=== PATIENT | male | born 1935 | race Caucasian/White ===

== ENCOUNTER → 2017-02-26 | Outpatient (CLI) | payer OTHER, MEDICARE ==
[~2017-02-26] MED LIST: AMBIEN 10 MG TA10 MG PO; AMLODIPINE BESY10 MG PO; ASPIRIN325 PO; ATORVASTATIN CA40 MG PO; BAYER CHEWABLE81 MG PO; CARVEDILOL6.25 MG PO; CELEBREX 200 M200 MG PO; CELEXA40 MG PO; CO Q-10400 MG; COUMADIN 2.5MG2.5 M1 PO; COUMADIN 5 MG TA5 M1 PO; ESCITALOPRAM OX20 MG PO; EXFORGE; HYDROCODONE-AP1 EAC6 PO; IBUPROFEN 200200 M1; LUNESTA3 MG PO; MIRAPEX 0.250.25 M1 PO; MOBIC7.5 MG PO; NAPROSYN500 MG PO; NIASPAN ER 101000 M1 PO; OMEGA-31000 M1; SIMVASTATIN40 MG PO; STOOL SOFTENER; STOOL SOFTENER100 MG PO; TAMSULOSIN HCL0.4 M1 PO; TRAZODONE 150150 M1 PO; VITAMIN D-32000 UNIT PO; XANAX 0.5 MG0.5 MG
== END ==
LOC: MRI 13:35
DX: I67.82 Cerebral ischemia (principal); J32.9 Chronic sinusitis, unspecified; H74.8X3 Other specified disorders of middle ear and mastoid, bilateral

== ENCOUNTER 2019-08-06 16:36 | Emergency (ER) | payer OTHER, MEDICARE ==
[~2019-08-06] VITALS: Ht 188 cm; Wt 90.7 kg
[2019-08-06 18:58] LABS: ABSOLUTE NEUTROPHILS 3.5 thou/uL (1.4-8.2); BASOPHILS 0.5 % (0.0-2.0); EOSINOPHILS 1.8 % (0.0-3.0); HEMATOCRIT 39.6 % (42.0-52.0); HEMOGLOBIN 13.5 gm/dL (14.0-18.0); LYMPHOCYTES 25.2 % (24.0-44.0); MCHC 34.1 g/dL (28.0-37.0); MCV 105.6 fL (80.0-100.0); MONOCYTES 9.7 % (1.0-8.0); PLATELET COUNT 192 thou/uL (150-400); POLYS 62.8 % (36.0-66.0); RBC 3.75 mil/uL (4.50-6.00); WBC 5.5 thou/uL (4.0-11.0)
[2019-08-06 19:00] LABS: ANION GAP 6 mmol/L (7-16); BUN 12 mg/dL (7-18); CALCIUM 10.3 mg/dL (8.5-10.1); CHLORIDE 104 mmol/L (98-107); CO2 31 mmol/L (21-32); CREATININE 1.2 mg/dL (0.7-1.3); GLUCOSE 97 mg/dL (74-106); POTASSIUM 3.8 mmol/L (3.5-5.1); SODIUM 141 mmol/L (136-145)
[2019-08-06 19:09] LABS: TROPONIN-I <0.06 ng/mL (<0.06)
[2019-08-06 19:17] LABS: APTT 32.4 Seconds (24.5-32.8); INR 1.3; PROTIME 13.4 Seconds (9.3-11.4)
[2019-08-06] MEDS ORDERED: ASA81BEC PO (19:30)
[2019-08-06] MEDS ORDERED: ESCITALOPRAM OX10 MG PO (19:31)
[2019-08-06] MEDS ORDERED: TYLOPHEN500 MG PO (19:32)
[2019-08-06] MEDS ORDERED: ELIQUIS5 MG PO (19:33)
[2019-08-06] MEDS ORDERED: MIRAPEX 0.250.25 M1 PO (19:39)
[2019-08-06] MEDS ORDERED: CARBIDOPA-LEVO1 EAC9 PO (19:40)
[2019-08-06] MEDS ORDERED: NOURIANZ PO (19:42)
[2019-08-06 20:46] VITALS: BP 148/69
== END 2019-08-06 20:46 | disposition home or self-care (01) ==
LOC: ER 16:36
PROVIDERS: Emergency Medicine
DX: K62.5 Hemorrhage of anus and rectum (principal); Z96.653 Presence of artificial knee joint, bilateral; Z95.2 Presence of prosthetic heart valve; Z91.041 Radiographic dye allergy status

== ENCOUNTER 2020-10-26 01:31 | Emergency (ER) | payer OTHER, MEDICARE ==
[~2020-10-26] VITALS: Ht 185.4 cm; Wt 95.3 kg
[~2020-10-26 01:31] MED LIST changes: +ASA81BEC PO; +CARBIDOPA-LEVO1 EAC9 PO; +ELIQUIS5 MG PO; +ESCITALOPRAM OX10 MG PO; +NOURIANZ PO; +TYLOPHEN500 MG PO
[2020-10-26 03:38] VITALS: BP 137/77
--- NOTE | 2020-10-26 12:07 | EKG ---
[place] [address] [facility] [employer] [place] [address] ELECTROCARDIOGRAM REPORT Name: GAIL GRAYSON Room #: DEP Zhang#: [id number] Admission: 10/26/20 Attend Phys: Discharge: 10/26/20 Date of : 37 Report #: [id number] ED Test Date: 2020-10-26 Test Time: 01:44:52 Pat Name: GAIL GRAYSON Department: Room: Gender: M [employer]: FRANTZ : 1935 Requested By: Phong Amador Order Number: [id number] MD: Lizandro Nagy Measurements Intervals [place] Rate: 66 P: [place]: QRS: -29 QRSD: 103 T: 28 QT: 443 QTc: 465 Interpretive Statements Atrial fibrillation Borderline left axis deviation Abnormal R-wave progression, late transition Compared to ECG 08/07/2003 07:22:16 Sinus bradycardia no longer present Electronically Signed On 10-26-2020 12:07:22 CDT by Lizandro Nagy [email or web address] <ELECTRONICALLY SIGNED> By: Lizandro Nagy MD, [facility] 10/26/20 1207 [id number] 0144 Lizandro Nagy MD, FACC /EPI
== END 2020-10-26 03:45 | disposition home or self-care (01) ==
LOC: ER 01:31
DX: S01.81XA Laceration without foreign body of other part of head, initial encounter (principal); I48.91 Unspecified atrial fibrillation; Z79.899 Other long term (current) drug therapy; Z79.82 Long term (current) use of aspirin; Z91.041 Radiographic dye allergy status; W01.198A Fall on same level from slipping, tripping and stumbling with subsequent striking against other object, initial encounter; Y92.89 Other specified places as the place of occurrence of the external cause; Y93.89 Activity, other specified; Y99.8 Other external cause status

== ENCOUNTER 2020-10-27 03:05 | Emergency (ER) | payer OTHER, MEDICARE ==
[~2020-10-27] VITALS: Ht 185.4 cm; Wt 95.3 kg
[2020-10-27 03:43] LABS: ABSOLUTE NEUTROPHILS 8.1 thou/uL (1.4-8.2); BASOPHILS 0.2 % (0.0-2.0); EOSINOPHILS 0.1 % (0.0-3.0); HEMATOCRIT 44.9 % (42.0-52.0); HEMOGLOBIN 15.5 gm/dL (14.0-18.0); LYMPHOCYTES 5.3 % (24.0-44.0); MCH 36.5 pg (26.0-34.0); MCHC 34.5 g/dL (28.0-37.0); MONOCYTES 6.4 % (1.0-8.0); PLATELET COUNT 170 thou/uL (150-400); RBC 4.23 mil/uL (4.50-6.00); RDW 13.7 % (10.5-14.5); WBC 9.2 thou/uL (4.0-11.0)
[2020-10-27 03:56] LABS: APTT 32.4 Seconds (24.5-32.8); INR 2.31; PROTIME 24.2 Seconds (9.3-11.4)
[2020-10-27 04:01] LABS: CALCIUM 9.6 mg/dL (8.5-10.1); CREATININE 0.9 mg/dL (0.7-1.3); POTASSIUM 3.5 mmol/L (3.5-5.1)
[2020-10-27 04:07] LABS: ALBUMIN 3.7 g/dL (3.4-5.0); TOTAL BILIRUBIN 1.4 mg/dL (0.2-1.0); TOTAL PROTEIN 8.1 g/dL (6.4-8.2)
[2020-10-27 04:36] VITALS: BP 156/81
--- NOTE | 2020-10-27 07:41 | EKG ---
[address] [place] [address] ELECTROCARDIOGRAM REPORT Name: GAIL GRAYSON Room #: DEP Zhang#: [id number] Admission: 10/27/20 Attend Phys: Discharge: 10/27/20 Date of : 37 Report #: [id number] [facility] ED Test Date: 2020-10-27 Test Time: 03:39:13 Pat Name: GAIL GRAYSON Department: Room: Gender: M [employer]: ovi : 1935 Requested By: Phong Amador Order Number: [id number] MD: Lizandro Nagy Measurements Intervals [place] Rate: 118 P: [place]: QRS: -41 QRSD: 99 T: 102 QT: 365 QTc: 512 Interpretive Statements Atrial fibrillation Left anterior fascicular block Abnormal R-wave progression, late transition Nonspecific repol abnormality, lateral leads Prolonged QT interval Compared to ECG 10/26/2020 01:44:52 Left anterior fascicular block now present Early repolarization now present Prolonged QT interval now present Electronically Signed On 10-27-2020 7:41:40 CDT by Liznadro Nagy [email or web address] <ELECTRONICALLY SIGNED> By: Lizandro Nagy MD, FACC 10/27/20 0741 [id number] Lizandro Nagy MD, FAC /EPI
== END 2020-10-27 04:38 | disposition short-term general hospital (02) ==
LOC: ER 03:05
PROVIDERS: Emergency Medicine
DX: S06.5X9A Traumatic subdural hemorrhage with loss of consciousness of unspecified duration, initial encounter (principal); I48.91 Unspecified atrial fibrillation; Z79.82 Long term (current) use of aspirin; Z79.899 Other long term (current) drug therapy; Z91.041 Radiographic dye allergy status; W18.39XA Other fall on same level, initial encounter; Y93.89 Activity, other specified; Y92.89 Other specified places as the place of occurrence of the external cause; Y99.8 Other external cause status